=== PATIENT | female | born 1985 | race African-American/Black ===

== ENCOUNTER 2019-12-28 22:33 | Emergency (ER) | payer MEDICARE, OTHER ==
[~2019-12-28] VITALS: Ht 160 cm; Wt 70.8 kg
[~2019-12-28 22:33] MED LIST: ALBUTEROL SULF8.5 GM INH; CIPRO500 MG PO; IBUPROFEN600 MG ORAL; IBUPROFEN600 MG PO; KEFLEX500 MG ORAL; METRONIDAZOLE500 MG PO; MUCINEX600 MG PO; NITROFURANTOIN100 M2 ORAL; NKM; ONDANSETRON ODT4 MG ORAL
[2019-12-28 22:50] VITALS: BP 113/73
--- NOTE | 2019-12-28 22:50 | NUR ---
ED Nurse Note: Pt ambulated into Ed from home CO spotting lasting 1 week. pt reports she took pregancy test at home and results were inconclusive. Pt reports scant amount of blood during spotting, no clots; pt denies pain, n/v. VSS, no s/s of distress noted. Awaiting ERmD at bedside
--- NOTE | 2019-12-28 22:56 | NUR ---
ED Nurse Note: ERMD at bedside
--- NOTE | 2019-12-28 23:00 | NUR ---
ED Nurse Note: UA sample sent to lab
[2019-12-28 23:39] LABS: APPEARANCE,URINE CLEAR; BILIRUBIN, URINE NEGATIVE (NEGATIVE); COLOR,URINE PALE YELLOW; GLUCOSE, URINE (UA) NEGATIVE (NEGATIVE); KETONES,URINE NEGATIVE (NEGATIVE); LEUKOCYTE ESTERASE ,URINE NEGATIVE (NEGATIVE); NITRITE,URINE NEGATIVE (NEGATIVE); PH,URINE 7 (4.5-8.0); PROTEIN,URINE NEGATIVE (NEGATIVE); UROBILINOGEN,URINE NORMAL MG/DL (0.0-1.0)
--- NOTE | 2019-12-29 00:05 | NUR ---
ED Nurse Note: ERMD at bedside
[2019-12-29 00:15] VITALS: BP 110/75
[2019-12-29 00:20] VITALS: BP 110/75
--- NOTE | 2019-12-29 00:20 | NUR ---
ER DISCHARGE NOTE: Patient is cleared to be discharged home per ERMD, pt is aox4, on room air, with stable vital signs. pt was given dc and prescription instructions, pt was able to verbalize understanding, pt id band . pt is able to ambulate with steady gait. pt took all belongings.
[2019-12-29] MEDS ORDERED: TYLENOL EXTRA500 MG ORAL (00:21)
--- NOTE | 2019-12-29 02:25 | Emergency Room Report ---
History of Present Illness General Chief Complaint: Female Urogenital Problems Source: Patient Present Illness HPI 34-year-old female presents ED for evaluation. Complaining of spotting x3 days. Denies any cramping or abdominal pain. States that she may be . Took a test at home which showed a faint line. Denies nausea or vomiting. States that she had a in November at [facility]. No other aggravating relieving factors. Denies any other associated symptoms Allergies: Coded Allergies: No Known Allergies (Unverified , 08/21/12) Patient History Past Medical History: none Past Surgical History: none Pertinent Family History: none Social History: Denies: smoking, alcohol use, drug use Now: No Immunizations: UTD Reviewed Nursing Documentation: PMH: Agreed; PSxH: Agreed Nursing Documentation-PMH Hx Asthma: Yes - bronchitis Review of Systems All Other Systems: negative except mentioned in HPI Physical Exam Vital Signs Date Time Temp Pulse Resp B/P (MAP) Pulse Ox O2 Delivery O2 Flow Rate FiO2 12/28/19 22:44 98.2 90 16 113/73 (86) 100 Room Air Sp02 EP Interpretation: reviewed, normal General Appearance: no apparent distress, alert, GCS 15, non-toxic Head: normocephalic, atraumatic Eyes: bilateral eye normal inspection, bilateral eye PERRL ENT: hearing grossly normal, normal pharynx, no angioedema, normal voice Neck: full range of motion, supple/symm/no masses Respiratory: chest non-tender, lungs clear, normal breath sounds, speaking full sentences Cardiovascular #1: regular rate, rhythm, no edema Cardiovascular #2: 2+ carotid (R), 2+ carotid (L), 2+ radial (R), 2+ radial (L) , 2+ dorsalis pedis (R), 2+ dorsalis pedis (L) Gastrointestinal: normal bowel sounds, non tender, soft, non-distended, no guarding, no rebound Rectal: deferred Genitourinary: normal inspection, no CVA tenderness Musculoskeletal: back normal, normal range of motion, gait/station normal, non- tender Neurologic: alert, motor strength/tone normal, oriented x3, sensory intact, responsive, speech normal Psychiatric: judgement/insight normal, memory normal, mood/affect normal, no suicidal/homicidal ideation Reflexes: 3+ bicep (R), 3+ bicep (L), 3+ tricep (R), 3+ tricep (L), 3+ knee (R) , 3+ knee (L) Lymphatic: no adenopathy Medical Decision Making Diagnostic Impression: Primary Impression: Spotting ER Course Hospital Course 34 yo F presents with spotting. denies pain Differential diagnoses include: UTI, DUB, Clinical course Patient placed on stretcher. After initial history and physical I ordered UA, urine . UA + blood. negative . I discussed findings with patient. Not . No signs of infection. No pain. I do not believe further work-up including ultrasound indicated at this time. Will discharge home with close outpatient follow-up. I will provide referrals Diagnosis - spotting Stable and discharged home. Instructed to followup with PMD. Return to ED if symptoms recur or worsen Labs Test 12/28/19 23:10 Urine Color Pale yellow Urine Appearance Clear Urine pH 7 (4.5-8.0) Urine Specific [place] 1.015 (1.005-1.035) Urine Protein Negative (NEGATIVE) Urine Glucose (UA) Negative (NEGATIVE) Urine Ketones Negative (NEGATIVE) Urine Blood 3+ (NEGATIVE) Urine Nitrite Negative (NEGATIVE) Urine Bilirubin Negative (NEGATIVE) Urine Urobilinogen Normal MG/DL (0.0-1.0) Urine Leukocyte Esterase Negative (NEGATIVE) Urine RBC 2-4 /HPF (0 - 2) Urine WBC 0-2 /HPF (0 - 2) Urine Squamous Epithelial Cells Moderate /LPF (NONE/OCC) Urine Bacteria Few /HPF (NONE) Urine HCG, Qualitative Negative (NEGATIVE) Last Vital Signs Date Time Temp Pulse Resp B/P (MAP) Pulse Ox O2 Delivery O2 Flow Rate FiO2 12/29/19 00:20 98.2 85 14 110/75 100 Room Air Status: improved Disposition: HOME, SELF-CARE Condition: Stable Scripts Acetaminophen* (TYLENOL EXTRA STRENGTH*) 500 Mg Tablet 500 MG ORAL Q8H PRN for Prn Headache/Temp > 101, #30 TAB 0 Refills Prov: Delon Helton MD 12/29/19 Referrals: NOT CHOSEN IPA/,REFERRING (PCP) [facility] [place] Patient Instructions: Abnormal Uterine Bleeding, [id number] Delon Helton MD Dec 29, 2019 02:25
== END 2019-12-29 00:20 | disposition home or self-care (01) ==
LOC: EMR 23:04
DX: O26.859 Spotting complicating pregnancy, unspecified trimester (principal); Z3A.00 Weeks of gestation of pregnancy not specified
CPT/HCPCS: 81003; 81025; 99283